=== PATIENT | female | born 1970 | race Two or more races ===

== ENCOUNTER 2018-09-11 01:26 | Inpatient (IN) | payer OTHER ==
[2018-09-11] VITALS (8 sets, daily range): BP systolic 97–118; BP diastolic 55–74
[~2018-09-11] VITALS: Ht 160 cm; Wt 82.7 kg
--- NOTE | 2018-09-11 01:35 | NUR ---
MS REBECCA INITIAL NOTES RECEIVED A PATIENT DIRECT ADMIT FROM [facility] . DX OF DEHYDRATION. PT ACCOMPANIED BY PERSONNEL ADVISER AND HER SISTER. PT IS ALERT ORIENTED X4 GERMAN AND ROMANIAN SPEAKING.ORIENTED PT TO HER ROOM AND HOW TO USED THE CALL LIGHTS SYSTEM SKIN WARM AND DRY TO TOUCH,ABDOMEN SOFT AND NON TENDER, BOWEL SOUNDS PRESENT. PER SISTER PT IS BEED CONSTIPATED AND THE LAST BOWEL 5 DAYS AGO. NO SIGNS OF ANY ACUTE DISTRESS AT THIS TIME. BREATHING EVEN AND UNLABORED. PER PT SISTER NO BP, IV AND BLOOD DRAW ON PT LEFT ARM , AND NO BP ON BOTH LOWER LEGS BECAUSE OF FRAGILE BONES PER PT DOCTOR. KEPT HER WARM AND COMFORTABLE AT ALL TIMES. SISTER AT THE BEDSIDE TILL AM . WILL CONTINUE MONITORING.
[2018-09-11] MEDS ORDERED: SOD250TA2 PO (02:24)
[2018-09-11] MEDS ORDERED: VENL75CA56 PO (02:24)
[2018-09-11] MEDS ORDERED: CHOL200026 PO (02:24)
[2018-09-11] MEDS ORDERED: OXYC10TA49 PO (02:24)
[2018-09-11] MEDS ORDERED: CALC300T4 PO (02:24)
[2018-09-11] MEDS ORDERED: ACETAMINOPHEN 325 MG TABLET PO PRN (03:30)
[2018-09-11] MEDS ORDERED: Z GUARD REMEDY 2 OZ OINT TP PRN (03:30)
[2018-09-11] MEDS ORDERED: MAG HYDROX/AL HYDROX/SIMETH 30 ML UDC PO PRN (03:30)
[2018-09-11] MEDS ORDERED: MAGNESIUM HYDROXIDE 30 ML UDC PO PRN (03:30)
[2018-09-11] MEDS ORDERED: ONDANSETRON HCL/PF 4 MG/2 ML VIAL IVP PRN (03:30)
[2018-09-11] MEDS: IV NS 0.9% 1,000 ML IV PRN ×2 (03:42→17:45)
[2018-09-11] MEDS: HYDROCODONE/APAP 5/325MG 1 EACH TABLET PO PRN ×2 (04:07→16:51)
--- NOTE | 2018-09-11 04:07 | NUR ---
MS REBECCA NOTES C/O GENERALIZED PAIN NORCO TABLET GIVEN ORDERED. NO SIGNS OF N/V NOTED. LIGHT SNACKS ALSO GIVEN. IVF INFUSING AT THIS TIME.
[2018-09-11 04:26] LABS: BASOPHILS # (AUTO) 0.1 /CMM (0.0-0.2); EOSINOPHILS % (AUTO) 1.2 % (0.0-6.0); LYMPHOCYTES # (AUTO) 6.1 /CMM (0.8-4.8); LYMPHOCYTES % (AUTO) 55.6 % (20.0-44.0); MEAN CORPUSCULAR HGB CONC 33 g/dl (31.0-36.0); MEAN CORPUSCULAR VOLUME 85 fL (82-100); MONOCYTES # (AUTO) 0.8 /CMM (0.1-1.30); MONOCYTES % (AUTO) 7.4 % (2.0-12.0); NEUTROPHILS # (AUTO) 3.8 /CMM (1.8-8.9); NEUTROPHILS % (AUTO) 34.8 % (43.0-81.0); RED BLOOD CELL COUNT(AUTO) 2.36 MIL/uL (4.0-5.2)
[2018-09-11 04:31] LABS: CALCIUM, SERUM 7.7 mg/dL (8.5-10.1); CARBON DIOXIDE 23 mmol/L (21-32); CHLORIDE 108 mmol/L (98-107); CREATININE 0.4 mg/dL (0.6-1.3); GLUCOSE 74 mg/dL (74-106); POTASSIUM 3.7 mmol/L (3.5-5.1); SODIUM SERUM 140 mmol/L (136-145); UREA NITROGEN, BLOOD 4 mg/dL (7-18)
[2018-09-11 04:36] LABS: ALANINE AMINOTRANSFERASE 26 U/L (12-78); ALBUMIN 2.1 g/dL (3.4-5.0); ALKALINE PHOSPHATASE 159 U/L (46-116); ASPARTATE AMINOTRANSFERASE 79 U/L (15-37); BILIRUBIN,TOTAL 0.8 mg/dL (0.2-1.0); PHOSPHORUS 2.2 mg/dL (2.5-4.9)
[2018-09-11 04:37] LABS: HEMATOCRIT 20 % (33-45)
[2018-09-11 04:46] LABS: HEMOGLOBIN 6.6 g/dL (11.5-14.8)
[2018-09-11 04:47] LABS: NEUTROPHILS % (MANUAL) 36 (42-76); PLATELET COUNT (AUTO) 20 /CMM (150-450)
[2018-09-11 04:48] LABS: LYMPHOCYTES % (MANUAL) 54 % (16-48); MONOCYTES % (MANUAL) 10 % (0-11.0)
[2018-09-11 05:06] LABS: CHOLESTEROL 108 mg/dL (<200); HDL CHOLESTEROL 18 mg/dL (40-60); LDL 64 mg/dL (0-99); THYROID STIMULATING HORMONE 5.454 uIU/mL (0.358-3.74); TRIGLYCERIDES 164 mg/dL (30-150)
--- NOTE | 2018-09-11 05:25 | NUR ---
MS REBECCA NOTES GOT CALLED FROM LAB ABOUT CRITICAL LAB RESULT . CALLED DAYCARE PROVIDER MD WAITING FOR RESPONSE. PT RESTING COMFORTABLY WITHOUT ANY ACUTE DISTRESS NOTED. IVF NS AT 75ML/HR INFUSING AT THIS TIME. SISTER AT THE BEDSIDE. PLACE CALL LIGHT AT REACH.
--- NOTE | 2018-09-11 07:53 | NUR ---
MS STUCCO PLASTERER CLOSING NOTES PT AWAKE AND ALERT WITH NO SIGNS OF ANY ACUTE DISTRESS NOTED. IVF STILL INFUSING ON HER RIGHT AC PATENT AND INTACT. PT AWARE THAT SHE WILL GETTING BLOOD TRANSFUSION LATER. KEPT HER WARM AND COMFORTABLE AT ALL TIMES. ALL NEEDS MET. ENDORSE TO AM NURSE FOR CONTINUITY OF CARE. PLACE CALL LIGHT AT REACH. SISTER AT THE BEDSIDE.
[2018-09-11] MEDS: K PHOS NEUTRAL 250 MG TABLET PO SCH ×2 (08:54→16:42)
[2018-09-11] MEDS: CHOLECALCIFEROL 1,000 UNIT TABLET (VIT D3) PO SCH (08:54)
[2018-09-11] MEDS: HYDROCODONE/APAP 10/325MG 1 EA TABLET PO PRN (08:54)
[2018-09-11] MEDS: CALCIUM CARBONATE 500 MG TAB.CHEW PO SCH ×2 (08:54→16:42)
[2018-09-11] MEDS: VENLAFAXINE XR 75 MG CAP.SR.24H PO SCH (08:54)
[2018-09-11] MEDS ORDERED: HYDROMORPHONE 1 MG/1 ML DISP.SYRIN IV PRN (12:00)
[2018-09-11] MEDS: MULTIVITAMINS,THERAGRAN 1 UDTAB TABLET PO SCH (12:30)
[2018-09-11 14:50] LABS: APPEARANCE,URINE CLEAR (CLEAR); BILIRUBIN,URINE NEGATIVE (NEGATIVE); BLOOD, URINE NEGATIVE Ery/uL (NEGATIVE); COLOR,URINE YELLOW (YELLOW); KETONES,URINE 1+ (NEGATIVE); LEUKOCYTE ESTERASE ,URINE NEGATIVE (NEGATIVE); NITRITE, URINE NEGATIVE (NEGATIVE); PROTEIN,URINE NEGATIVE (NEGATIVE); UGLUCOSE NEGATIVE (NEGATIVE)
[2018-09-11 15:01] LABS: BACTERIA,URINE None seen /HPF (None Seen); RBC,URINE 0-2 /HPF (0-2); SQUAMOUS EPITHELIAL CELL,UR Few /HPF (None Seen); WBC,URINE 0-2 /HPF (0-3)
[2018-09-11] MEDS: CEFTRIAXONE 1 G in IV D5W 50 ML IV SCH (15:41)
--- NOTE | 2018-09-11 17:18 | NUR ---
MS/RN - Notes Patient is A/O X 4, remain afebrile, stable on room air, c/o lower back pain HI 7/10, relieved by [place] 5/325mg 1 tab, H/H 6.6/20, no active bleeding seen, transfused 1 unit of PRBC with no adverse reaction noted, breath sounds clear bilaterally, no c/o SOB post transfusion. IVF NS at 75 ml/hr infusing well on the RAC with no signs of infiltration. All pressure ulcer prevention measures noted to be in place. All needs attended and met. Sister Sara (DPOA) updated on plan of care. Will continue with current medical management.
--- NOTE | 2018-09-11 20:00 | NUR ---
MS PERSONAL COACH INITIAL NOTES SEEN PT IN BED LYING AWAKE AND ALERT WITH IVF OF NS AT 75ML/HR INFUSING ON HER RIGHT AC, PATENT AND INTACT.FAMILY STATED SHE MUCH LOOKED BETTER THAN LAST NIGHT AFTER BLOOD TRANSFUSION. RESPIRATION EVEN AND NON-LABORED, SKIN WARM AND DRY TO TOUCH, NO EDEMA NOTED. ENCOURAGE PT TO USED THE CALL LIGHT SYSTEM IF SHE NEEDS SOME HELPED. KEPT HER WARM AND COMFORTABLE AT ALL TIMES. WILL CONTINUE MONITORING. PLACE CALL LIGHT AT REACH.
--- NOTE | 2018-09-11 21:27 | NUR ---
Patient lives with her mother, sister Savana and her 16year old daughter in a single story home in [place] . Has hx of breast CA and currently receiving treatment at [facility] - her oncologist Dr. Cordero. She ambulates with the use of a walker and semi-independent with adl's. She own a walker and wheelchair, no homehealth reported. Her pcp is . Current dc plan is to return home, family will provide ride. Addendum: 09/11/18 at 2128 by GLORY RUIZ RN Amended: Links added.
[2018-09-11] MEDS: Z GUARD REMEDY 2 OZ OINT TP SCH (21:43)
--- NOTE | 2018-09-11 21:45 | NUR ---
MS ORNAMENTAL PLASTERER HELPER NOTES C/O PATIENT CONSTIPATION , MOM GIVEN ORDERED.
--- NOTE | 2018-09-11 21:55 | NUR ---
MS REBECCA NOTES AFTER MOM GIVEN PT DID SOME BOWEL MOVEMENT , STOOL SAMPLE SEND FOR STOOL OCCULT BLOOD TEST ORDERED. SPONGES BATH RENDERED AND KEPT HER COMFORTABLE AT ALL TIMES. WILL CONTINUE MONITORING. PLACE CALL LIGHT AT REACH.
[2018-09-11 22:57] LABS: OCCULT BLOOD STOOL POSITIVE (NEGATIVE)
--- NOTE | 2018-09-12 00:50 | NUR ---
MS FERNANDEZ NOTES. PT CALLED AND STILL COMPLAINING TO HAVE MORE BOWEL MOVEMENT AND FEELING CONSTIPATED. DULCOLAX SUPPOSITORY ADMINISTERED ORDERED PER PT REQUESTED. WILL CONTINUE MONITORING.
[2018-09-12] MEDS ORDERED: BISACODYL SUPP (10 MG) 10 MG/SUPP.RECT SUPP.RECT RC PRN (01:00)
--- NOTE | 2018-09-12 07:30 | NUR ---
RN Note Patient in bed asleep, resting but easily woken. No signs of acute distress or SOB noted. Resident kept warm and comfortable. Call light within reach. Will continue to monitor.
--- NOTE | 2018-09-12 07:34 | NUR ---
MS ACTIVE DIRECTORY SYSTEMS ADMINISTRATOR CLOSING NOTES PT BACK TO REST, NO SIGNS OF ANY ACUTE DISTRESS NOTED. ALL NEEDS MET. KEPT HER WARM AND COMFORTABLE AT ALL TIMES. PLACE CALL LIGHT AT REACH. ENDORSE TO AM NURSE .
[2018-09-12 08:00] VITALS: BP 127/76
[2018-09-12] MEDS: K PHOS NEUTRAL 250 MG TABLET PO SCH ×2 (08:18→17:14)
[2018-09-12] MEDS: CHOLECALCIFEROL 1,000 UNIT TABLET (VIT D3) PO SCH (08:18)
[2018-09-12] MEDS: VENLAFAXINE XR 75 MG CAP.SR.24H PO SCH (08:18)
[2018-09-12] MEDS: MULTIVITAMINS,THERAGRAN 1 UDTAB TABLET PO SCH (08:18)
[2018-09-12] MEDS: CALCIUM CARBONATE 500 MG TAB.CHEW PO SCH ×2 (08:18→17:14)
[2018-09-12] MEDS: Z GUARD REMEDY 2 OZ OINT TP SCH ×2 (08:20→21:08)
[2018-09-12] MEDS: HYDROCODONE/APAP 5/325MG 1 EACH TABLET PO PRN (10:03)
[2018-09-12 11:13] LABS: BASOPHILS # (AUTO) 0.3 /CMM (0.0-0.2); BASOPHILS % (AUTO) 1.9 % (0.0-2.0); HEMATOCRIT 33 % (33-45); HEMOGLOBIN 10.8 g/dL (11.5-14.8); LYMPHOCYTES # (AUTO) 8.1 /CMM (0.8-4.8); LYMPHOCYTES % (AUTO) 59.4 % (20.0-44.0); MEAN CORPUSCULAR HGB CONC 33 g/dl (31.0-36.0); MEAN CORPUSCULAR VOLUME 88 fL (82-100); MONOCYTES % (AUTO) 7.6 % (2.0-12.0); NEUTROPHILS # (AUTO) 4.1 /CMM (1.8-8.9); NEUTROPHILS % (AUTO) 30.1 % (43.0-81.0); RED BLOOD CELL COUNT(AUTO) 3.79 MIL/uL (4.0-5.2); WHITE BLOOD COUNT (AUTO) 13.7 K/uL (4.3-11.0)
[2018-09-12 11:43] LABS: CALCIUM, SERUM 8.3 mg/dL (8.5-10.1); CREATININE 0.5 mg/dL (0.6-1.3); POTASSIUM 3.6 mmol/L (3.5-5.1)
--- NOTE | 2018-09-12 11:45 | NUR ---
MS RN Critical Value Received call from lab and informed Pt platelet count low at 15k. No active bleeding noted. Dr. Cardenas notified with no further orders at this time.
[2018-09-12 11:47] LABS: PLATELET COUNT (AUTO) 15 /CMM (150-450)
[2018-09-12 11:54] LABS: THYROID STIMULATING HORMONE 4.26 uIU/mL (0.358-3.74)
[2018-09-12 12:19] LABS: IRON, SERUM 117 ug/dl (50-175); TOTAL IRON BINDING CAPACITY 150 ug/dl (250-450)
[2018-09-12 12:28] LABS: EOSINOPHILS % (MANUAL) 1 % (0-4); LYMPHOCYTES % (MANUAL) 66 % (16-48); MONOCYTES % (MANUAL) 8 % (0-11.0); NEUTROPHILS % (MANUAL) 25 (42-76)
[2018-09-12] MEDS: CEFTRIAXONE 1 G in IV D5W 50 ML IV SCH (13:12)
[2018-09-12 13:41] LABS: FERRITIN 2998 ng/mL (8-388)
[2018-09-12 16:00] VITALS: BP 120/78
--- NOTE | 2018-09-12 17:47 | NUR ---
MS RN Notes Patient is A/O X 4 and remains afebrile. Resident is stable on room air with no s/s of acute distress or SOB. All pressure ulcer prevention measures noted to be in place. Turned patient for adequate circulation and comfortably. Call light within reach. Resident denies any pain at this time. No n/v throughout shift. Currently refusing IV fluids. Will continue with current medical management and monitoring.
--- NOTE | 2018-09-12 19:00 | NUR ---
RN NOTES PT REFUSING IV FLUIDS. ENCOURAGED TO DRINK WATER. PT VERBALLY AGREED.
--- NOTE | 2018-09-12 19:00 | NUR ---
RN OPENING NOTES PT AWAKE AND RESTING IN BED. FAMILY AT BEDSIDE. NO COMPLAINTS OF PAIN, SOB OR DISTRESS AT THIS TIME. PT HAS A RAC #20 INTACT AND PATENT. SAFETY PRECAUTIONS IN PLACE, BED IN LOWEST LOCKED POSITION, X2 SIDE RAILS UP AND CALL LIGHT WITHIN REACH. WILL CONTINUE TO MONITOR.
[2018-09-12 20:00] VITALS: BP 131/74
--- NOTE | 2018-09-13 06:08 | NUR ---
RN CLOSING NOTES PT RESTING IN BED. NO COMPLAINTS OF PAIN, SOB OR DISTRESS OVERNIGHT. PT HAS A RAC #20 INTACT AND PATENT. PT CONTINUES TO REFUSE IV HYDRATION. SAFETY PRECAUTIONS IN PLACE, BED IN LOWEST LOCKED POSITION, X2 SIDE RAILS UP AND CALL LIGHT WITHIN REACH. ALL PATIENT NEEDS MET OVERNIGHT. WILL ENDORSE TO DAY SHIFT NURSE FOR CONTINUITY OF CARE.
--- NOTE | 2018-09-13 07:46 | NUR ---
MS RN OPENING NOTE RECEIVED PATIENT IN BED. SLEEPING, EASILY AROUSED WITH VERBAL STIMULI. ORIENTED X4. ON ROOM AIR, TOLERATING WELL. IN NO APPARENT DISTRESS OR DISCOMFORT AT THIS TIME. RESPIRATIONS EVEN AND UNLABORED, DENIES PAIN AND SOB. PATIENT IS ABLE TO COMMUNICATE NEEDS. RIGHT AC 20G IVC SL, PATIENT REFUSING IV FLUIDS. KEPT CLEAN AND COMFORTABLE. ALL NEEDS ATTENDED, SAFETY MEASURES IN PLACE, BED IN LOW LOCKED POSITION, SIDE RAILS UP X2, CALL LIGHT WITHIN EASY REACH. WILL CONTINUE TO MONITOR.
[2018-09-13 08:00] VITALS: BP 122/84
[2018-09-13 08:08] LABS: CANCER AG, 15-3 385.3 U/mL (0.0-25.0); IMMUNOGLOBULIN A, SERUM 220 mg/dL (87-352); IMMUNOGLOBULIN G, SERUM 2150 mg/dL (700-1600); IMMUNOGLOBULIN M, SERUM 54 mg/dL (26-217)
[2018-09-13] MEDS: VENLAFAXINE XR 75 MG CAP.SR.24H PO SCH (08:34)
[2018-09-13] MEDS: MULTIVITAMINS,THERAGRAN 1 UDTAB TABLET PO SCH (08:34)
[2018-09-13] MEDS: CALCIUM CARBONATE 500 MG TAB.CHEW PO SCH ×2 (08:34→17:03)
[2018-09-13] MEDS: K PHOS NEUTRAL 250 MG TABLET PO SCH ×2 (08:35→17:03)
[2018-09-13] MEDS: CHOLECALCIFEROL 1,000 UNIT TABLET (VIT D3) PO SCH (08:35)
[2018-09-13] MEDS: Z GUARD REMEDY 2 OZ OINT TP SCH ×2 (08:36→21:10)
[2018-09-13] MEDS: HYDROCODONE/APAP 5/325MG 1 EACH TABLET PO PRN (10:54)
[2018-09-13] MEDS: CEFTRIAXONE 1 G in IV D5W 50 ML IV SCH (12:29)
[2018-09-13 16:00] VITALS: BP 110/70
[2018-09-13 18:28] LABS: BASOPHILS # (AUTO) 0.2 /CMM (0.0-0.2); BASOPHILS % (AUTO) 1.7 % (0.0-2.0); EOSINOPHILS % (AUTO) 0.9 % (0.0-6.0); HEMATOCRIT 26 % (33-45); HEMOGLOBIN 8.6 g/dL (11.5-14.8); LYMPHOCYTES # (AUTO) 6.4 /CMM (0.8-4.8); LYMPHOCYTES % (AUTO) 63.8 % (20.0-44.0); MEAN CORPUSCULAR HGB CONC 34 g/dl (31.0-36.0); MEAN CORPUSCULAR VOLUME 87 fL (82-100); MONOCYTES % (AUTO) 10.4 % (2.0-12.0); NEUTROPHILS # (AUTO) 2.3 /CMM (1.8-8.9); NEUTROPHILS % (AUTO) 23.2 % (43.0-81.0); RED BLOOD CELL COUNT(AUTO) 2.95 MIL/uL (4.0-5.2)
--- NOTE | 2018-09-13 18:33 | NUR ---
PATIENT REFUSED ORDERED HEAD CT. ACCORDING TO PATIENT SHE DISCUSSED IT WITH DR. MILLIGAN. CLARIFIED WITH DR MILLIGAN REGARDING CANCELATION OF THE HEAD CT. PER DR MILLIGAN, PATIENT TOLD HER SHE HAD HEAD CT DONE LAST WEEK AT [facility] AND IT WAS NEGATIVE AND SHE IS CURRENTLY REFUSING TO REPEAT THE TEST. DR. MILLIGAN ORDERED TO OBTAIN THE RESULTS FROM [facility] AND CANCEL CURRENT CT AT THIS TIME. WILL FOLLOW UP.
--- NOTE | 2018-09-13 18:37 | NUR ---
MS RN CLOSING NOTE PATIENT IN BED. SLEEPING, EASILY AROUSED WITH VERBAL STIMULI. ORIENTED X4. ON ROOM AIR, TOLERATING WELL. IN NO APPARENT DISTRESS OR DISCOMFORT AT THIS TIME. RESPIRATIONS EVEN AND UNLABORED, DENIES PAIN AND SOB. PATIENT IS ABLE TO COMMUNICATE NEEDS. RIGHT AC 20G IVC WITH FLUIDS RUNNING AT 75ML/HR. KEPT CLEAN AND COMFORTABLE. ALL NEEDS ATTENDED, TURNED AND REPOSITIONED PER PROTOCOL. SAFETY MEASURES IN PLACE, BED IN LOW LOCKED POSITION, SIDE RAILS UP X2, CALL LIGHT WITHIN EASY REACH. WILL ENDORSE TO PM NURSE FOR [place].
[2018-09-13 18:52] LABS: PLATELET COUNT (AUTO) 16 /CMM (150-450)
[2018-09-13 19:05] LABS: BAND % (MANUAL) 1 % (0.0-5.0); LYMPHOCYTES % (MANUAL) 62 % (16-48); MONOCYTES % (MANUAL) 9 % (0-11.0); MYELOCYTES % 1 % (0-0); NEUTROPHILS % (MANUAL) 27 (42-76)
--- NOTE | 2018-09-13 19:37 | NUR ---
MS/RN RECEIVE PATIENT IN BED AWAKE, ALERT, ORIENTED, APPEAR WEAK, COMFORTABLE, NO DISTRESS NOTED, FAMILY MEMBERS AT BEDSIDE. WILL MONITOR.
[2018-09-13 20:00] VITALS: BP 124/78
[2018-09-13] MEDS: HYDROCODONE/APAP 10/325MG 1 EA TABLET PO PRN (21:08)
--- NOTE | 2018-09-13 22:00 | NUR ---
MS/RN PATIENT IS SLEEPING, AROUSABLE, APPEAR COMFORTABLE, NO DISTRESS NOTED, CALL LIGHT IN REACH. WILL CONTINUE TO MONITOR.
[2018-09-14] MEDS: IV NS 0.9% 1,000 ML IV PRN (04:59)
--- NOTE | 2018-09-14 06:27 | NUR ---
MS/RN PATIENT IS AWAKE AT THIS TIME, COMFORTABLE, NO DISTRESS NOTED, ALL NEEDS ATTENDED AT THIS TIME, WILL CONTINUE TO MONITOR.
[2018-09-14 07:31] LABS: BASOPHILS # (AUTO) 0.2 /CMM (0.0-0.2); BASOPHILS % (AUTO) 1.7 % (0.0-2.0); EOSINOPHILS % (AUTO) 0.8 % (0.0-6.0); HEMATOCRIT 26 % (33-45); HEMOGLOBIN 8.7 g/dL (11.5-14.8); LYMPHOCYTES # (AUTO) 5.3 /CMM (0.8-4.8); MEAN CORPUSCULAR HGB CONC 33 g/dl (31.0-36.0); MEAN CORPUSCULAR VOLUME 89 fL (82-100); MONOCYTES # (AUTO) 1.2 /CMM (0.1-1.30); MONOCYTES % (AUTO) 13.5 % (2.0-12.0); NEUTROPHILS # (AUTO) 2.3 /CMM (1.8-8.9); RED BLOOD CELL COUNT(AUTO) 2.96 MIL/uL (4.0-5.2)
[2018-09-14 07:38] LABS: CALCIUM, SERUM 7.9 mg/dL (8.5-10.1); CREATININE 0.4 mg/dL (0.6-1.3); MAGNESIUM 1.9 mg/dL (1.8-2.4); PHOSPHORUS 2.3 mg/dL (2.5-4.9); POTASSIUM 3.1 mmol/L (3.5-5.1)
--- NOTE | 2018-09-14 07:45 | NUR ---
MS RN OPENING NOTE RECEIVED PATIENT IN BED. ALERT ORIENTED X4. ON ROOM AIR, TOLERATING WELL. IN NO APPARENT DISTRESS OR DISCOMFORT AT THIS TIME. RESPIRATIONS EVEN AND UNLABORED, DENIES PAIN AND SOB. PATIENT IS ABLE TO COMMUNICATE NEEDS. RIGHT AC 20G IVC SL WITH FLUIDS RUNNING AT 75ML/HR. KEPT CLEAN AND COMFORTABLE. ALL NEEDS ATTENDED, SAFETY MEASURES IN PLACE, BED IN LOW LOCKED POSITION, SIDE RAILS UP X2, CALL LIGHT WITHIN EASY REACH. WILL CONTINUE TO MONITOR.
[2018-09-14 07:51] LABS: PLATELET COUNT (AUTO) 13 /CMM (150-450)
[2018-09-14 08:00] VITALS: BP 128/82
[2018-09-14] MEDS: CALCIUM CARBONATE 500 MG TAB.CHEW PO SCH ×2 (08:54→16:26)
[2018-09-14] MEDS: CHOLECALCIFEROL 1,000 UNIT TABLET (VIT D3) PO SCH (08:54)
[2018-09-14] MEDS: K PHOS NEUTRAL 250 MG TABLET PO SCH ×2 (08:54→16:26)
[2018-09-14] MEDS: MULTIVITAMINS,THERAGRAN 1 UDTAB TABLET PO SCH (08:54)
[2018-09-14] MEDS: VENLAFAXINE XR 75 MG CAP.SR.24H PO SCH (08:54)
[2018-09-14] MEDS: Z GUARD REMEDY 2 OZ OINT TP SCH ×2 (09:17→21:16)
[2018-09-14] MEDS: POTASSIUM CHLORIDE 20 MEQ TAB.PRT.SR PO SCH ×2 (09:19→10:51)
[2018-09-14 10:00] LABS: LYMPHOCYTES % (MANUAL) 26 % (16-48); MONOCYTES % (MANUAL) 12 % (0-11.0); NEUTROPHILS % (MANUAL) 62 (42-76)
[2018-09-14] MEDS: HYDROCODONE/APAP 5/325MG 1 EACH TABLET PO PRN ×2 (10:50→18:52)
[2018-09-14] MEDS: CEFTRIAXONE 1 G in IV D5W 50 ML IV SCH (12:25)
[2018-09-14] MEDS ORDERED: POTASSIUM PHOSPHATE MM 15 MMOL in IV D5W 250 ML IV SCH (14:30)
[2018-09-14] MEDS: POTASSIUM PHOSPHATE MM 7.5 MMOL in IV D5W 100 ML IV SCH ×2 (15:12→18:23)
[2018-09-14 16:00] VITALS: BP 127/80
[2018-09-14] MEDS: MECLIZINE HCL 25 MG TABLET PO SCH (16:25)
[2018-09-14] MEDS: MEGESTROL ACETATE SUSP 400 MG/10 ML UDC PO SCH (16:25)
--- NOTE | 2018-09-14 18:33 | NUR ---
MS RN CLOSING NOTE PATIENT IN BED. ALERT ORIENTED X4. ON ROOM AIR, TOLERATING WELL. IN NO APPARENT DISTRESS OR DISCOMFORT AT THIS TIME. RESPIRATIONS EVEN AND UNLABORED, DENIES PAIN AND SOB. PATIENT IS ABLE TO COMMUNICATE NEEDS. RIGHT AC 20G IVC WITH FLUIDS RUNNING AT 75ML/HR. KEPT CLEAN AND COMFORTABLE. ALL NEEDS ATTENDED, ASSISTED WITH TURNING AND REPOSITIONING PER PROTOCOL. SAFETY MEASURES IN PLACE, BED IN LOW LOCKED POSITION, SIDE RAILS UP X2, CALL LIGHT WITHIN EASY REACH. WILL ENDORSE TO PM NURSE FOR [place].
[2018-09-14 19:59] VITALS: BP 112/85
[2018-09-15] MEDS: MECLIZINE HCL 25 MG TABLET PO SCH ×3 (00:45→15:05)
[2018-09-15 06:06] LABS: *SPE A/G RATIO 0.7 (0.7-1.7); *SPE ALBUMIN 2.5 g/dL (2.9-4.4); *SPE ALPHA-1-GLOBULIN 0.4 g/dL (0.0-0.4); *SPE ALPHA-2-GLOBULIN 0.5 g/dL (0.4-1.0); *SPE BETA GLOBULIN 0.9 g/dL (0.7-1.3); *SPE GLOBULIN, TOTAL 3.8 g/dL (2.2-3.9); *SPE M-SPIKE Not Observed g/dL (Not Observed)
--- NOTE | 2018-09-15 06:24 | NUR ---
MS RN NOTES AWAKE & RESPONSIVE. NOT IN ANY DISTRESS. NO SOB NOTED. DENIES ANY PAIN OR DISCOMFORT AT THIS TIME. WITH IV-HL PATENT & INTACT. MONITORED ACCORDINGLY. CALL LIGHT WITHIN REACH. BED IN LOWEST POSITION. SR UP X 2 FOR SAFETY. WILL ENDORSE TO NEXT SHIFT.
[2018-09-15 07:02] LABS: BASOPHILS # (AUTO) 0.1 /CMM (0.0-0.2); BASOPHILS % (AUTO) 1.4 % (0.0-2.0); EOSINOPHILS % (AUTO) 1.5 % (0.0-6.0); HEMATOCRIT 24 % (33-45); HEMOGLOBIN 7.8 g/dL (11.5-14.8); LYMPHOCYTES # (AUTO) 6.3 /CMM (0.8-4.8); LYMPHOCYTES % (AUTO) 60.4 % (20.0-44.0); MEAN CORPUSCULAR HGB CONC 33 g/dl (31.0-36.0); MEAN CORPUSCULAR VOLUME 88 fL (82-100); MONOCYTES # (AUTO) 1.1 /CMM (0.1-1.30); MONOCYTES % (AUTO) 10.7 % (2.0-12.0); NEUTROPHILS # (AUTO) 2.7 /CMM (1.8-8.9); RED BLOOD CELL COUNT(AUTO) 2.69 MIL/uL (4.0-5.2); WHITE BLOOD COUNT (AUTO) 10.4 K/uL (4.3-11.0)
--- NOTE | 2018-09-15 07:20 | NUR ---
RN OPENING NOTES RECEIVED PATIENT IN BED RESTING. A/O X4, ABLE TO MAKE NEEDS KNOWN. TOLERATING ROOM AIR WELL. IN NO APPARENT DISTRESS OR SOB. RESPIRATIONS EVEN AND UNLABORED, DENIED PAIN OR DISCOMFORT. IV ACCESS INTACT AND PATENT, IVF INFUSING @ 75ML/HR, NO REDNESS, NO INFILTRATION. KEPT PATIENT SAFE AND COMFORTABLE. ALL NEEDS ATTENDED, SAFETY MEASURES IN PLACE, BED IN LOW LOCKED POSITION, SIDE RAILS UP X2, CALL LIGHT WITHIN EASY REACH. WILL CONTINUE TO MONITOR ACCORDINGLY.
[2018-09-15 07:30] LABS: CALCIUM, SERUM 7.9 mg/dL (8.5-10.1); CREATININE 0.4 mg/dL (0.6-1.3); PHOSPHORUS 2.9 mg/dL (2.5-4.9); POTASSIUM 3.4 mmol/L (3.5-5.1)
[2018-09-15 07:48] LABS: PLATELET COUNT (AUTO) 15 /CMM (150-450)
[2018-09-15 08:00] VITALS: BP 115/71
[2018-09-15 08:10] LABS: BAND % (MANUAL) 2 % (0.0-5.0); EOSINOPHILS % (MANUAL) 2 % (0-4); LYMPHOCYTES % (MANUAL) 53 % (16-48); MONOCYTES % (MANUAL) 16 % (0-11.0); NEUTROPHILS % (MANUAL) 27 (42-76)
[2018-09-15] MEDS: VENLAFAXINE XR 75 MG CAP.SR.24H PO SCH (08:30)
[2018-09-15] MEDS: MULTIVITAMINS,THERAGRAN 1 UDTAB TABLET PO SCH (08:30)
[2018-09-15] MEDS: K PHOS NEUTRAL 250 MG TABLET PO SCH (08:30)
[2018-09-15] MEDS: MEGESTROL ACETATE SUSP 400 MG/10 ML UDC PO SCH (08:30)
[2018-09-15] MEDS: CALCIUM CARBONATE 500 MG TAB.CHEW PO SCH (08:30)
[2018-09-15] MEDS: CHOLECALCIFEROL 1,000 UNIT TABLET (VIT D3) PO SCH (08:31)
[2018-09-15] MEDS: Z GUARD REMEDY 2 OZ OINT TP SCH (08:33)
--- NOTE | 2018-09-15 09:48 | NUR ---
MAXI NOTES REFUSED BODY CHECKED/ SKIN ASSESSMENT. Addendum: 09/15/18 at 7682 by PAULO SHETTY REFUSED PICTURES
[2018-09-15] MEDS ORDERED: POTASSIUM CHLORIDE 20 MEQ TAB.PRT.SR PO SCH (11:30)
[2018-09-15] MEDS: CEFTRIAXONE 1 G in IV D5W 50 ML IV SCH (12:24)
[2018-09-15] MEDS: HYDROCODONE/APAP 10/325MG 1 EA TABLET PO PRN (13:14)
[2018-09-15] MEDS ORDERED: LEVOFLOXACIN (500MG) 500 MG TABLET PO SCH (14:00)
[2018-09-15 16:00] VITALS: BP 116/72
[2018-09-15] MEDS ORDERED: GADODIAMIDE 2.5 MMOL/5 ML VIAL IJ ONE (16:59)
[2018-09-15] MEDS ORDERED: GADODIAMIDE 5 MMOL/10 ML VIAL IJ ONE (16:59)
--- NOTE | 2018-09-15 17:10 | NUR ---
RN NOTES PATIENT ASKED FOR PRESCRIPTION FOR DIZZINESS AND APPETITE. NOTIFIED DR MCKOY. PER MD, SHE WILL CALL IT IN THE PHARMACY, PHARMACY INFO GIVEN TO .
--- NOTE | 2018-09-15 17:20 | NUR ---
DISCHARGED PATIENT IN STABLE CONDITION PICKED UP BY AMBULANCE CREW. DISCHARGE INSTRUCTIONS GIVEN, VERBALIZED UNDERSTANDING. DC PAPERWORK GIVEN. NO BELONGINGS NOTED, SISTER BROUGHT IT WITH HER FEW DAYS AGO. REMOVED IV ACCESS, APPLIED PRESSURE, NO BLEEDING, NO COMPLICATIONS. REMOVED NAME BAND. REFUSED PICTURES.
== END 2018-09-15 17:00 | disposition home health service (06) | DRG 382 ==
LOC: MED 01:26
PROVIDERS: ADMIT Internal Medicine; ATTEND Internal Medicine
PROC: 30233N1 Transfusion of Nonautologous Red Blood Cells into Peripheral Vein, Percutaneous Approach (ICD-10-PCS; principal; 2018-09-11)
DX: C50.919 Malignant neoplasm of unspecified site of unspecified female breast (principal); C79.51 Secondary malignant neoplasm of bone; D69.6 Thrombocytopenia, unspecified; E44.0 Moderate protein-calorie malnutrition; E83.39 Other disorders of phosphorus metabolism; E86.0 Dehydration; N39.0 Urinary tract infection, site not specified; R62.7 Adult failure to thrive; Z96.649 Presence of unspecified artificial hip joint; T14.8XXA Other injury of unspecified body region, initial encounter; R53.81 Other malaise; E78.5 Hyperlipidemia, unspecified; F32.9 Major depressive disorder, single episode, unspecified; Z90.49 Acquired absence of other specified parts of digestive tract; Z79.899 Other long term (current) drug therapy; D63.0 Anemia in neoplastic disease
CPT/HCPCS: 36415; 70553-TC; 71045-TC; 80048-TC; 80053-TC; 80061-TC; 81000-TC; 82272-TC; 82728-TC; 82784; 83540-TC; 83735-TC; 84100-TC; 84155; 84165; 84443-TC; 84484-TC; 84703-TC; 85025-TC; 86300; 86334; 86850-TC; 86921-TC; 87040-TC; 87081-TC; 87086-TC; A4216; A9579; G0378; J0696; J3490; J7030; J7050; J7060; J8597; P9016-BL